=== PATIENT | female | born 1965 | race Caucasian/White ===

== ENCOUNTER 2017-11-05 18:42 | Observation (INO) ==
[2017-11-05] MEDS ORDERED: ASPIRIN 81 MG CHEWABLE TABLET PO ONE (18:56)
[2017-11-05] MEDS ORDERED: SALINE FLUSH 10ml SYRINGE IVF PRN (18:56)
[2017-11-05] MEDS ORDERED: NITROGLYCERIN 0.4 MG SUBLINGUAL TABLET SL PRN (18:56)
--- OUTSIDE RECORDS SUMMARY | 2017-11-05 19:01 | External Medical Summary | Continuity of Care Document ---
:1965 Author Organization [facility] LIVE HCIS Care Team Providers Name Role Phone CHE TREVINO MD Unavailable Unavailable Insurance Providers Payer Name Policy Number Subscriber Name Relationship [employer] [facility] Ppo [id number] Darya Rodriguez 17 Self / Same As Patient Problems Medical Problems Problem Onset Date Status Encounter for screening colonoscopy Unknown Active Medications Medication Dose Route Sig Days/Qty Instructions Order Discontinued Status Date Date Ascorbic Acid 500 Mg ORAL DAILY Active 5 Cholecalciferol 1,000 ORAL DAILY Active Unit 5 Biotin 10 Mg ORAL DAILY Active 5 Metformin Hcl 1,000 ORAL TWICE A Active (Glucophage) Mg DAY 5 [primrose oil] 1 Tab ORAL TWICE A Active DAY 5 Social History No social history. Hospital Discharge Instructions No hospital discharge instructions. Plan of Care No plan of care. Functional Status No functional status results. Allergies, Adverse Reactions, Alerts Allergen Type Severity Reaction Status Last Updated No Known Drug Allergies Active 03/16/15 Immunizations No immunization records. Vital Signs Acute Vital Signs Vital Response Date/Time Temperature (Fahrenheit) 97.5 Pulse 58 bpm Respirations 16 Height 5 ft 4 in Weight 198 lb Body Mass Index 34.0 kg/m^2 Results No known relevant diagnostic tests, laboratory data and/or discharge summary. Procedures No known history of procedures.
--- OUTSIDE RECORDS SUMMARY | 2017-11-05 19:01 | External Medical Summary | Continuity of Care Document ---
:1965 Author Organization [facility] Allergies Active Description Code Type Severity Reaction Onset Reported/ Identified Relationship Clinical to Patient Status Yes acetaminophe 1605 1 N/A headaches n Yes acetaminophe 1605 1 N/A N/A n Yes HYDROCODONE 1555 1 N/A headaches BITARTRATE Yes HYDROCODONE 1555 1 N/A N/A BITARTRATE Yes No Known F0019 Drug Unknown N/A 03/16/2015 Drug 61017 Aller Allergies gy Medications Problems Date Dx Attending Type Code Diagnosis Diagnosed By Coded 11/17/2014 Ot V76.12 12/09/2014 URIEL MASCORRO, Ot V76.12 CHE R 03/17/2015 LAUREANO MASCORRO, Ot 278.00 OBESITY, NOS JAVI D 03/17/2015 LAUREANO MASCORRO, Ot 562.10 DIVERTICULOSIS COLON JAVI D (W/O MENT OF HEMORR 03/17/2015 LAUREANO MASCORRO, Ot V76.51 SCREEN MAL JAVI D NEOP-COLON 03/17/2015 LAUREANO MASCORRO, Ot V85.34 BODY MASS INDEX JAVI D 34.0-34.9, ADULT 09/03/2016 W S49.92XA Injury of left shoulder, initial encounter 09/28/2016 W S49.92XA Injury of left shoulder, initial encounter 10/09/2016 Ot V76.12 OT SCREEN MAMMO-MALIGN NEOPLASM OF TEE 10/09/2016 URIEL MASCORRO, Ot V76.12 OTH SCREEN CHE R MAMMO-MALIGN NEOPLASM OF TEE 10/19/2016 URIEL MASCORRO, Ot Z12.31 ENCNTR SCREEN CHE R MAMMOGRAM FOR MALIGNANT NE 10/31/2016 URIEL MASCORRO, Ot Z12.31 ENCNTR SCREEN CHE R MAMMOGRAM FOR MALIGNANT NE 11/21/2016 W S43.432D Labral tear of shoulder, left, subsequent encounter 12/10/2016 URIEL MASCORRO, Ot Z12.31 ENCNTR SCREEN CHE R MAMMOGRAM FOR MALIGNANT NE 02/11/2017 W S43.432D Labral tear of shoulder, left, subsequent encounter 02/11/2017 W S49.92XA Injury of left shoulder, initial encounter 02/11/2017 W Z01.818 Encounter for other preprocedural examination 02/21/2017 W Z98.890 Status post labral repair of shoulder Procedures Code Description Performed By Performed On 03/17/2015 45.23 COLONOSCOPY X-RAY 09/03/2016 42385 EXAM OF SHOULDER OFFICE 09/03/2016 17800 CONSULTATION Telephone 10/31/2016 63910 Call DRAIN/INJ 11/16/2016 85157 JOINT/BURSA W/O US 11/16/2016 93509 OFFICE/OUTPATIENT VISIT EST 11/16/2016 J1030 Methylprednisolone 40 MG inj Drugs 11/16/2016 J3490 unclassified injection REMOVAL 02/14/2017 18190 OF BONE LESION SHOULDER 02/14/2017 51365 ARTHROSCOPY/SURGERY SHOULDER 02/14/2017 32626 ARTHROSCOPY/SURGERY Results Encounters ACCT Visit Discharge Status Pt. Type Provider Facility Loc./Unit Complaint No. Date/Time [id number] 10/16/2016 10/16/2016 CLS Outpatient URIEL Sherman RAD SCREENING - [id number] 14:28:00 23:59:59 , [facility] Z12.31 CHE Martinez [id number] 03/17/2015 03/17/2015 DIS Outpatient LAUREANO Sherman ASC COLONOSCOPY [id number] 06:23:00 08:40:00 , [facility] [id number] 11/17/2014 11/17/2014 CLS Outpatient URIEL Sherman RAD SCREENING [id number] 14:30:00 23:59:59 , [facility] CHE Martinez [id number] 05/18/2013 Document [id number] 08:49:[place] [id number] 10/21/2017 10/21/2017 CLS Outpatient [facility] 15:00:00 23:59:59 [facility]
--- NOTE | 2017-11-05 19:35 | Emergency Department Report ---
Chest Pain HPI - General Chief Complaint: Chest Pain Stated Complaint: Chest Pain Time Seen by Provider: 11/05/17 18:56 Source: patient, family Mode of arrival: ambulatory Limitations: no limitations - History of Present Illness HPI narrative: 51yo woman presents to the ER for evaluation of CP. Pt was driving home at 1700 when she had palpitations associated with chest pain. Pt has a long h/o palpitations without chest pain. Pt continued to drive the 30+ minutes from work to [place], despite believing that her heart was stopping at intervals. Pt completed some shopping, then went home to try to wait out her sx. Pt was unable to wait out her sx, so she came to the ER for evaluation. Pt has a remote h/o HTN and DM. Since starting a ketogenic diet and losing weight, she has d/c'ed these meds, with the knowledge of her physician. This diet and wt loss has improved her palpitations. Pt has been off her diet since , with resultant worsening of her sx. MD complaint: chest pain Occurred At: work Onset (ago): hour(s) (2) Duration: constant Onset: during rest Pain location: substernal Severity: moderate Severity scale (1-10): 5 Quality: tightness, heaviness Pain radiation: none Relieving factors: nothing Exacerbating factors: exertion Associated symptoms: nausea, diaphoresis Aspirin Today: 81 mg x 4, provided by ED Nitro Today: 0.4 mg x 1, provided by ED Treatments prior to arrival chest pain: none - Related Data On Oral Contraceptives: No Home Medications Medication Instructions Recorded Confirmed Docusate Sodium [Colace] 200 mg PO DAILY 11/05/17 11/05/17 Magnesium Oxide [Magnesium] 400 mg PO DAILY 11/05/17 11/05/17 Multivitamin [One Daily] 1 tab PO DAILY 11/05/17 11/05/17 [place]-3/Dha/Epa/Fish Oil [Fish Oil 1,000 mg PO DAILY 11/05/17 11/05/17 1,000 mg Softgel] Vitamin D 1 tab PO DAILY 11/05/17 11/05/17 Allergies Allergy/AdvReac Type Severity Reaction Status Date / Time No Known Allergies Allergy Verified 11/05/17 19:00 Review of Systems All systems: reviewed and negative except as stated Cardiovascular: Reports: as per HPI, chest pain, palpitations. Denies: dyspnea on exertion, orthopnea, edema, syncope, paroxysmal nocturnal dyspnea PFSH Patient Stated Medical History Other Cardiology Yes: [facility] Medical History Chest pain (Acute Medical) Medical History Updates: HTN. DM - Social History Smoking status: Never smoker Physical Exam - Limitations Limitations: no limitations - General General appearance: alert, in no apparent distress, obese - Normal Exams: Head:: Normocephalic without trauma Eyes:: Pupils are PERRLA w/ EOMI, No scleral icterus, irritation, or foreign bodies noted ENMT:: No facial trauma, nasal exudates, pharyngeal erythema, or exudates are noted Neck:: Full range of motion, without adenopathy Chest/Respirations:: Clear all maldonado, with good airflow, and symmetry bilaterally Cardiovascular:: Regular rate and rhythm, without murmur or gallop, Pulses 2+ all extremities, capillary refill, <2 seconds all extremities Lymphatic:: No lymphadenopathy Musculoskeletal:: No tenderness, or deformity noted, good range of motion, all extremities Integumentary:: No rashes, hives, or bruising noted, hair and nails, without abnormality Neurological:: Patient is alert, and oriented, cranial nerves, motor/sensory/ cerebellar, exams w/o gross deficits Psychiatric:: Patient exhibits, appropriate attention Course - Consultations Consultation #1: Greg Telemed: Will admit for overnight obs and troponin trending. Time: 20:46 Vital Signs Temperature 97.8 F 11/05/17 18:45 Pulse Rate 75 11/05/17 18:45 Respiratory Rate 24 11/05/17 18:45 Blood Pressure 172/89 H 11/05/17 18:45 Pulse Oximetry 97 11/05/17 18:45 Temperature 97.8 F 11/05/17 18:45 Pulse Rate 71 11/05/17 19:45 Respiratory Rate 24 11/05/17 18:45 Blood Pressure 180/77 H 11/05/17 19:45 Pulse Oximetry 98 11/05/17 19:45 Chest Pain - MDM Narrative Medical decision making narrative: Pt with risk factors for ACS, but not long enough to effectively r/o ACS. Has not had cardiology work up previously; h/o palpitations, but no h/o depr/ anxiety. Contacted tele-hospitalist, who will admit for overnight r/o. - Differential Diagnosis Likely: fracture of rib, pneumothorax, stable angina, unstable angina pectoris, atypical chest pain, costochondritis, chest pain - Medical Records Data Attestation: I reviewed the patient's medical records. - Lab Data Attestation: I reviewed the patient's lab results. Result diagrams: 11/05/17 19:09 11/05/17 19:09 Lab Results 11/05/17 11/05/17 11/05/17 Range/Units 19:09 19: 19:09 WBC 8.8 (4.5-11.0) T/MM3 RBC 4.78 (4.00-5.20) M/MM3 Hgb 13.3 (12-16) GM/DL Hct 40.5 (36-46) % MCV 84.7 (80-100) UM3 MCH 27.8 (26-34) UUG MCHC 32.8 (31-37) GM/DL RDW Std Deviation 40.8 (36.9-50.2) FL Plt Count 257 (130-400) T/MM3 MPV 10.2 (9.4-12.4) UM3 Immature Gran % (Auto) 0.2 (0.0-0.5) % Neut % (Auto) 42.7 (33-66) % Lymph % (Auto) 50.0 H (23-45) % Mcclain % (Auto) 5.1 (0-9.0) % Eos % (Auto) 1.5 (0-4) % Baso % (Auto) 0.5 (0-2) % Neut # (Auto) 3.8 (1.8-7.7) T/MM3 Lymph # (Auto) 4.4 (1-4.8) T/MM3 Mcclain # (Auto) 0.5 (0-0.8) T/MM3 Eos # (Auto) 0.1 (0-0.5) T/MM3 Baso # (Auto) 0.0 (0-0.2) T/MM3 Abs Immat Gran (auto) 0.02 (0.00-0.03) T/MM3 D-Dimer < 150 (0-230) NG/ML Turbidity < 20 (0-20) Sodium 144 (134-144) MEQ/L Potassium 3.6 (3.6-5) MEQ/L Chloride 106 (98-107) MEQ/L Carbon Dioxide 25 (22-30) MEQ/L Anion Gap 13 (5-15) MEQ/L BUN 15.0 (7-17) MG/DL Creatinine 0.6 L (0.7-1.2) MG/DL GFR Calculation 105 BUN/Creatinine Ratio 25 (6-26) RATIO Glucose 93 (65-110) MG/DL Calculated Osmolality 278 (261-280) MOSM/KG Calcium 9.2 (8.4-10.2) MG/DL Total Bilirubin 0.20 (0.20-1.30) MG/DL Icterus Index < 2 (0-7) AST 18 (14-36) U/L ALT 33 (9-52) U/L Alkaline Phosphatase 78 (38-126) U/L Troponin I < 0.012 (0-0.12) ng/ml B-Natriuretic Peptide 46.6 (0-175) pg/mL Total Protein 7.3 (6.3-8.2) G/DL Albumin 4.2 (3.5-5.0) G/DL Globulin 3.1 (2.4-3.6) G/DL Albumin/Globulin Ratio 1.4 (1.1-2.2) RATIO Specimen Hemolysis < 15 (0-25) - Radiology Data Attestation: I reviewed the patient's radiology results. CXR: Cardiomegaly; findings consistent with fluid congestion. No acute osseus pathology. - EKG Data EKG #1 EKG attestation: Yes: I reviewed and interpreted this EKG. EKG shows normal: sinus rhythm, axis, QRS complexes, ST-T waves Heart block present: 1st Degree Interpretation: no acute changes Disposition Clinical Impression: Chest pain Qualifiers: Chest pain type: unspecified Qualified Code(s): R07.9 - Chest pain, unspecified Disposition: 02 To [facility] Condition: Improved Time of Disposition: 20:50 - Seen By: physician
[2017-11-05] MEDS ORDERED: ACETAMINOPHEN 325 MG TABLET PO PRN (21:16)
[2017-11-05] MEDS ORDERED: ONDANSETRON 4 MG/2 ML INJECTION IVP PRN (21:16)
[2017-11-05 21:25] VITALS: BMI 34.7
--- NOTE | 2017-11-05 22:08 | History & Physical Report ---
History of Present Illness Date: 11/06/17 Chief complaint: chest pain HPI: Please note that the patient was seen via telemedicine with nursing assistance on 11/05/2017 Ms. Washington is a pleasant 51yo woman with h/o essential HTN and DM2 on no meds now after ketogenic diet and weight loss, still with class 1 obesity BMI 34. h/ o hysterrectomy, bladder tacking and shoulder surgery as well. Has had monitor confirmed PACs in the past, but never chest pain. 5pm tonight while driving had L parasternal CP 6/10 at the worst with nausea and palpitations. No diaphoresis or SOB. Did have palps briefly, and the CP went away only to intermittently reoccur. She is CP free now, and feels normal currently. ASA given in ED. PFSH Patient Stated Medical History Other Cardiology Yes: [facility] Clinic Medical History Chest pain (Acute Medical) Medical History Updates: HTN. DM - Social History Smoking status: Never smoker Housing: house Medications Home Medications Medication Instructions Recorded Confirmed Type Docusate Sodium [Colace] 200 mg PO DAILY 11/05/17 11/05/17 History Magnesium Oxide [Magnesium] 400 mg PO DAILY 11/05/17 11/05/17 History Multivitamin [One Daily] 1 tab PO DAILY 11/05/17 11/05/17 History [place]-3/Dha/Epa/Fish Oil [Fish Oil 1,000 mg PO DAILY 11/05/17 11/05/17 History 1,000 mg Softgel] Vitamin D 1 tab PO DAILY 11/05/17 11/05/17 History Allergies Allergy/AdvReac Type Severity Reaction Status Date / Time No Known Allergies Allergy Verified 11/05/17 19:00 Exam Vital Signs: Temperature 97.5 F 11/05/17 21:17 Pulse Rate 63 11/05/17 21:17 Respiratory Rate 18 11/05/17 21:17 Blood Pressure 142/75 H 11/05/17 21:17 Pulse Oximetry 98 11/05/17 21:17 Telemetry Rhythm: Sinus Rhythm Height/Weight/BMI: Height 1.63 m Weight 91.6 kg Body Mass Index 34.7 - Constitutional Present: no acute distress - Routine HEENT Exam Head: Present: normocephalic Eye: Present: EOMI - Routine Neck Exam Present: full ROM - Routine Respiratory Exam Present: CTA bilaterally. Absent: accessory muscle use, dyspnea - Routine Cardiovascular Exam Present: RRR, S1, S2, no murmur - Routine Abdominal Exam Present: soft, normoactive bowel sounds - Routine Extremities Exam Absent: cyanosis, clubbing, edema - Routine Back/Spine/Pelvis Exam Back/Spine: Present: full ROM - Routine Skin Exam Present: intact - Routine Neurological Exam Present: alert, oriented X3, CN II-XII intact - Routine Psychiatric Exam Present: normal affect Results - Labs CBC & Chem 7: 11/05/17 19:09 11/05/17 19:09 Assessment and Plan (1) Chest pain Current visit: Yes Status: Acute (2) HTN (hypertension) Current visit: Yes Status: Acute (3) DM2 (diabetes mellitus, type 2) Current visit: Yes Status: Acute (4) Obesity (BMI 30.0-34.9) Current visit: Yes Status: Acute Assessment and Plan: 1. CP HAILEY on tele with repeat troponins. Likely needs stress test as cannot determine pulm, GI, musculoskeletal cause. ASA and Am lipid profile as likely dyslipidemia with a total chol over 200 this year. Note no tobacco and no FHx but mother with ?VSD in adulthood, and father ?atrial myxoma. 2. DM2 on diet normally, check A1C 3. Essential HTN, high now. Prn amlodipine for now. No LVH by EKG. 4. Class 1 obesity BMI 34. - Physician Narriative Physician: Lyndsey Alexander MD Narriative: 11/06/17 13:49 See my updated note dictated today. Hospital Course Summary Disclaimer: The visit summary below is not to be considered part of the above Progress Note.
[2017-11-06 05:34] VITALS: RESP 16
--- NOTE | 2017-11-06 08:25 | XRay Report ---
Indication: CP PROCEDURE: XR chest 1V: Encounter: Initial Comparison: None. Findings: Heart size is normal. The lungs are clear. There is no focal opacity to suggest atelectasis or pneumonia. No mediastinal or hilar adenopathy. No pleural effusion. There is no significant tortuosity of the descending thoracic aorta. There is no significant degenerative changes of the thoracic spine. IMPRESSION: No acute process. .
[2017-11-06] MEDS ORDERED: ASPIRIN 325 MG TABLET PO SCH (09:00)
--- NOTE | 2017-11-06 14:00 | History & Physical Report ---
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 She has no past history of cardiac disease other than palpitations earlier this year for which she had a Holter monitor demonstrating PVCs. She was in her usual state of health until yesterday evening while driving home when she noticed a sensation she describes as her heart stopping for about 5 seconds followed by a dull pain in the substernal area lasting about 5 seconds. Pain did not radiate and there were no associated symptoms. After the sensation of her heart not be eating for a few seconds she had awareness of her heart beating normally without describe palpitations. She had a couple of events while driving; [place], and a couple more while resting after she arrived home. Which she characterizes as the worst of the events had minor nausea associated with it but did not last particularly longer than others. After about half a dozen events she presented to the emergency room where EKG and initial troponin was unremarkable. Aspirin was administered in the emergency room and she was hospitalized for evaluation of atypical chest pain. The patient reports experiencing one episode of the irregular heartbeat followed by brief chest discomfort in the emergency room and since that time has had no additional events. The patient denies any unusual activities earlier in the day or unusual stresses although a friend who accompanies her reports that she has had increased life stresses recently. Review of Systems All systems PM: 10-point ROS was reviewed, no additional remarkable complaints except (occasional palpitations, headaches, nausea, chronic constipation, and chronic myalgias.) [facility] Medical History Updates: HTN. DM-managed with ketogenic diet/weight loss. Borderline lipid disorder. History shingles Surgical History: Hysterectomy with bladder suspension; left shoulder surgery for torn labrium; exploratory laparotomy for abdominal pain-ovarian hemorrhage identified Family History: Mother-congenital heart disease "hole in the heart", COPD, Father-CAD, tumor on his heart, alive no FH cancer or DM - Social History Smoking status: Never smoker Substance use type: does not use Alcohol intake frequency: does not drink Current occupation: RN at custodial in [employer] Social history: PCP Dr. Nubia Huggins, full code, no alternate decision-maker Medications Home Medications Medication Instructions Recorded Confirmed Type Docusate Sodium [Colace] 200 mg PO DAILY 12/12/17 12/12/17 History Magnesium Oxide [Magnesium] 400 mg PO DAILY 11/05/17 11/05/17 History Multivitamin [One Daily] 1 tab PO DAILY 11/05/17 11/05/17 History [place]-3/Dha/Epa/Fish Oil [Fish Oil 1,000 mg PO DAILY 11/05/17 11/05/17 History 1,000 mg Softgel] Vitamin D 1 tab PO DAILY 11/05/17 11/05/17 History Allergies Allergy/AdvReac Type Severity Reaction Status Date / Time No Known Allergies Allergy Verified 11/05/17 19:00 Exam Vital Signs: Temperature 96.5 F L 11/06/17 07:42 Pulse Rate 62 11/06/17 07:44 Respiratory Rate 16 11/06/17 07:42 Blood Pressure 109/73 11/06/17 07:42 Pulse Oximetry 98 11/06/17 07:42 EXAM: General-NAD, alert HEENT-PERRL, EOMI without nystagmus, conjugate gaze, conjunctiva clear, sclera anicteric, facial structures symmetric, oropharynx clear, neck supple and without adenopathy Lungs-respirations nonlabored, good airflow sounds clear Cardiac-regular rhythm, S1-S2 Abd-soft, nontender, without palpable mass, bowel sounds present Ext-without edema Skin-without rash or wounds on exposed skin surfaces MS-anterior chest wall nontender on palpation Neuro-cranial nerves III through XII intact, motor tone/power normal, sensation intact to light touch 4 extremities Psych-calm, cooperative, euthymic Telemetry Rhythm: Sinus Rhythm Height/Weight/BMI: Height 1.63 m Weight 91.1 kg Body Mass Index 34.7 Results - Labs CBC & Chem 7: 11/05/17 19:09 11/05/17 19:09 Labs: D-dimer < 150 Troponin < 0.012 x 3 Cholesterol 144, triglycerides 165, LDL 75, HDL 65 - ECG Data Tracing #1 I reviewed this ECG and interpreted as documented below: (sinus rhythm, single PVC present, first-degree AV block; normal waveforms without acute ST/T-wave changes) Tracing #2 I reviewed this ECG and interpreted as documented below: (EKG on 11/06 demonstrates sinus bradycardia with borderline first-degree AV block, waveforms are completely normal and unchanged from admission-no PVC seen today.) ECG compared to prior tracings: there are no significant changes - Imaging and Cardiology Chest x-ray Status: image reviewed by me (NAD, right hemidiaphragm slightly elevated.) Assessment and Plan (1) Chest pain Problem details: Atypical Current visit: Yes Status: Acute (2) HTN (hypertension) Current visit: Yes Status: Acute (3) DM2 (diabetes mellitus, type 2) Current visit: Yes Status: Acute (4) Obesity (BMI 30.0-34.9) Current visit: Yes Status: Acute Assessment and Plan: Atypical chest pain Hypertension Pre-diabetes Obesity-BMI 34.5 Metabolic syndrome Ms. Washington presented with atypical chest pain associated with palpitations. She has known history of PVCs; no ectopy has been demonstrated except single PVCs/and occassional couplets. EKGs and troponins are unremarkable. There is family history of structural heart disease and echocardiogram is being obtained. No significant family history of coronary artery disease and I believe patient can be safely further evaluated as an outpatient. Presenting blood pressures were elevated but have stabilized quickly overnight, appear to be well controlled with recent weight loss. A1c 6.1, blood sugar on admission 93. Lipids well controlled other than minor hypertriglyceridemia best addressed by further weight loss. Will refer for outpatient workup with Dr. Webber. Discharge after echo completed and magnesium level back. Hospital Course Summary Disclaimer: The visit summary below is not to be considered part of the above Progress Note.
[2017-11-06 15:20] VITALS: BP 127/70; TEMP 98; O2SAT 99
[2017-11-06 15:21] VITALS: PULSE 66
--- NOTE | 2017-11-06 19:38 | Discharge Summary ---
Discharge Summary- Blank Discharge Summary: Ms. Washington was hospitalized overnight for evaluation of atypical chest pain. Please referred to the H&P I dictated earlier today for details of hospitalization and hospital course. Echocardiogram was obtained prior to discharge but report is pending at discharge. Patient will be notified of results when available. Follow up with cardiology as an outpatient for consideration of stress testing was recommended in addition to daily low-dose aspirin use. Medications are otherwise unchanged.
--- NOTE | 2017-11-07 20:29 | Echocardiogram ---
DATE OF PROCEDURE November 06, 2017 This is a two-dimensional echo with spectral Doppler, color-flow and M-mode. It was obtained in a patient with palpitations and chest pain. Left atrium is mildly dilated. Left ventricular end-diastolic dimension is normal. Interventricular septum appears to be hypertrophied with asymmetrical septal hypertrophy at 1.5 cm with no outflow obstruction. Left ventricular systolic function is normal with ejection fraction of about 65%. Right atrium is normal. Right ventricle is normal. Aortic root dimension is normal. Mitral valve is morphologically normal with mild mitral regurgitation. Aortic valve appears to be a trileaflet structure with no stenosis or insufficiency. Tricuspid valve shows mild tricuspid regurgitation with normal estimated pulmonary artery systolic pressure of 29. Pulmonary valve shows mild pulmonary insufficiency. There is no pericardial effusion. IMPRESSION 1. Normal LV systolic function with ejection fraction of 65%. 2. Left atrial dilation. 3. Asymmetrical septal hypertrophy without outflow obstruction. 4. Mild mitral regurgitation. 5. Mild tricuspid regurgitation with normal estimated pulmonary artery systolic pressure of 29. 6. Mild pulmonary insufficiency. MTDD
== END 2017-11-06 16:06 | disposition home or self-care (01) ==
LOC: SRG 18:42 → ED 18:42 → SRG 21:15
PROVIDERS: ADMIT Hospitalist; ATTEND Internal Medicine